=== PATIENT | female | born 1995 | race Caucasian/White ===

== ENCOUNTER 2023-02-24 16:28 | Emergency (ER) | payer OTHER, SELFPAY ==
[2023-02-24 16:41] VITALS: BP 133/78; PULSE 116; O2SAT 98
--- NOTE | 2023-02-24 16:56 | ED.SEIZURE ---
HPI - Seizure General Chief Complaint: Seizure Stated Complaint: SZ LIKE ACTIVITY, POST ICTAL ON EMS ARRIVAL Time Seen by Provider: 02/24/23 16:55 Source: patient Mode of arrival: ambulatory Limitations: no limitations History of Present Illness HPI Narrative: Patient history of GTC since age 5 on zonisamide usually gets seizure once a year today she was at work at a seizure and she fell with tongue bite also complaining of mild headache no alcohol use no lack of sleep not on tramadol Wellbutrin patient also been congested for last 1 week tested for COVID negative recurrent EMS report patient was standing head injury in a tonic-clonic seizure which lasted about 20-25 seconds patient fell and hit the right side of the head to the ground without any significant obvious injuries Related Data Home Medications Medication Instructions Recorded Confirmed drospirenone 3 mg-ethinyl 1 tab PO DAILY 02/24/23 02/24/23 estradiol 0.03 mg tablet (Kely) fluticasone propionate 50 2 spray intranasal DAILY 02/24/23 02/24/23 mcg/actuation nasal spray,suspension loratadine 10 mg tablet 10 mg PO DAILY 02/24/23 02/24/23 zonisamide 100 mg capsule 300 mg PO DAILY 02/24/23 02/24/23 zonisamide 100 mg capsule 400 mg PO BEDTIME 02/24/23 02/24/23 Allergies Allergy/AdvReac Type Severity Reaction Status Date / Time No Known Allergies Allergy Unverified 12/27/19 16:26 [No Known Allergies*] Review of Systems Review of Systems: Yes all other systems are reviewed and are negative PMFSH Social History Social History Advance Directives: No Physical Exam Vital Signs: Vital Signs: Last Vital Signs Temp 98.6 F 02/24/23 17:01 Pulse 86 02/24/23 17:01 Resp 18 02/24/23 17:01 BP 113/73 02/24/23 17:01 Pulse Ox 98 02/24/23 17:01 O2 Del Method Room Air 02/24/23 17:01 BMI result Body Mass Index 36.6 Appearance: Alert. Oriented X3. No acute distress. Sleepy Eyes: PERRLA, No Nystagmus ENT: Pharynx normal. Oral Mucosa moist superficial tongue bite no active bleeding Neck: Normal inspection. Neck supple. CVS: Normal heart rate and rhythm. Pulses normal. Respiratory: No respiratory distress. Equal air entry bilateral, no wheezing/rales/rhonchi Abdomen: Soft and nontender. Bowel sounds are present, no mass palpable, no CVA tenderness Skin: Skin warm and dry. Normal skin color. Normal skin turgor. Extremities: No lower extremity edema. No calf tenderness Neuro: Oriented X 3. No motor deficit. No sensory deficit.No cerebellar signs , cranial nerves II-XII intact Medications Administered Discontinued Medications Generic Name Dose Route Start Last Admin Trade Name Fatou PRN Reason Stop Dose Admin Acetaminophen 650 mg 02/24/23 17:43 02/24/23 17:54 Acetaminophen 325 Mg Tablet PO 02/24/23 17:44 Not Given ONCE ONE Lorazepam 1 mg 02/24/23 17:32 02/24/23 17:47 Lorazepam 2 Mg/Ml Vial IVPUSH 02/24/23 17:33 1 mg ONCE ONE Administration Medical Decision Making Medical Decision Making [facility] Narrative: Patient with epilepsy for longstanding on zonisamide followed by neurologist had a seizure today without any significant injuries patient feeling much better at this time discharge patient home advised to follow up with neurologist Differential Diagnosis Differential Diagnoses: The differential diagnosis associated with the presentation includes As above Lab Data [facility] Lab Attestation statement: I reviewed the patient's lab results. Discharge Plan Discharge Clinical Impression: Epileptic seizure Patient Disposition: Home, Self-Care Instructions: Epilepsy (ED) Additional Instructions: Continue medication as prescribed by your neurologist and follow up with him Report to the ER if more frequent seizure Prescriptions: No Action zonisamide 100 mg capsule 400 mg PO BEDTIME zonisamide 100 mg capsule 300 mg PO DAILY fluticasone propionate 50 mcg/actuation spray,suspension 2 spray intranasal DAILY drospirenone-ethinyl estradiol [Kely] 3-0.03 mg tablet 1 tab PO DAILY loratadine 10 mg tablet 10 mg PO DAILY
[2023-02-24 17:01] VITALS: BP 113/73; PULSE 86; RESP 18; TEMP 37; O2SAT 98; BMI 36.6
[2023-02-24] MEDS: LORazepam 2 MG/ML VIAL 1 MG IVPUSH (17:47)
[2023-02-24 18:27] LABS: Influenza A PCR POSITIVE (Negative); Influenza B PCR NEGATIVE (Negative); Resp Syncy Virus RNA Qual PCR NEGATIVE (Negative); SARS COV2 PCR INHOUSE NEGATIVE (Negative)
== END 2023-02-24 18:36 | disposition home or self-care (01) ==
PROVIDERS: Emergency Provider Internal Medicine; PCP Internal Medicine
DX: G40.909 Epilepsy, unspecified, not intractable, without status epilepticus (principal); Z20.822 Contact with and (suspected) exposure to COVID-19; Z20.828 Contact with and (suspected) exposure to other viral communicable diseases
CPT/HCPCS: 0241U; 96374; 99284; J2060

== ENCOUNTER 2024-12-04 08:30 | Outpatient (AMB) | payer OTHER, SELFPAY ==
--- NOTE | 2024-12-04 08:33 | A.OFFVIS_ITS ---
Intake Visit Reasons: 6 months Allergies No Known Allergies (No Known Allergies*) Allergy (Unverified 12/04/24 08:37) Medication List - Last Reconciled 12/04/24 by Joyce Bowman CNP drospirenone-ethinyl estradiol 3-0.03 mg (Kely) 1 tab PO DAILY fluticasone propionate 50 mcg/actuation 2 sprays intranasal DAILY loratadine 10 mg PO DAILY lorazepam 0.5 mg PO DAILY PRN zonisamide 100 mg orally 3 caps in the morning and 4 caps at bedtime; HPI Comments Details: 28-year-old woman with h/o absence seizures in childhood, and grandmal seizures started at menarche. She was doing okay. No seizures. No medication side effects. She has not needed to use lorazepam. Sleep was okay. Mood was okay. She was working at [employer]. She was possibly considering starting a family in the future. [facility] Medical History (Updated 12/04/24 @ 08:35 by Joyce Bowman CNP) Absence seizure disorder Juvenile myoclonic epilepsy Social History Unable to assess alcohol history related to: Unknown Review of Systems Const Denies chills, Denies daytime sleepiness, Denies difficulty sleeping, Denies fatigue, Denies fever(s), Denies frequent falls, Denies headache(s), Denies increased appetite, Denies poor appetite, Denies snoring, Denies weakness, Denies weight gain and Denies weight loss Eyes Denies loss of vision ENT Denies vertigo, Denies dizziness and Denies headache(s) Card Denies chest pain at rest, Denies chest pain with activity, Denies syncope, Denies leg edema and Denies palpitations Resp Denies snoring GI Denies constipation, Denies heartburn, Denies diarrhea and Denies nausea Denies urinary frequency, Denies urinary incontinence and Denies urinary urgency Musc Denies abnormal gait, Denies numbness and Denies tingling Skin/Breast Denies dry skin and Denies rash Neuro Denies abnormal gait, Denies vertigo, Denies dizziness, Denies syncope, Denies frequent falls, Denies headache(s), Denies lack of coordination, Denies loss of vision, Denies memory loss, Denies numbness, Denies restless legs, Denies seizure-like activity, Denies tingling, Denies paresthesias, Denies tremor(s) and Denies weakness Psych Denies anxiety, Denies depression, Denies auditory hallucinations, Denies memory loss, Denies visual hallucinations and Denies suicidal ideation Endo Denies fatigue and Denies palpitations Physical Exam Const Other: General Appearance:? normal, in no acute distress. Skin:? no rashes, no significant birthmarks. Heart:? S1, S2 normal, no murmurs. Lungs:? clear anteriorly and posteriorly. Extremities:? no edema. Psych:? alert, oriented, cognitive function intact, cooperative with exam. Neuro Other: Mental Status:?Normal attention, orientation, memory and affect.? Cranial Nerves:?Pupils are equal, round and reactive to light. External occular muscles are intact. Visual mixon are full. Face is symmetrical. Facial sensations are normal. Tongue is midline. Palate elevates symmetrically. Shoulder shrugging is normal. Hearing to bedside conversation is normal. Sensory Exam:?....? Coordination:?No ataxia,?no titubation.? Gait Exam: Within normal limits. Extrapyramidal System:?No tremor, rigidity with normal facial expressions.? Pronator Drift:?Not present.? Involuntary Movements:?No tremors seen.? Speech:?Normal.? Results Reviewed Results Reviewed: Routine EEG in 2020: [facility] Routine EEG in office in Dec 2015: [facility] Routine EEG in office in Feb 2015: [place]. Assessment & Plan Assessment & Plan (1) Juvenile myoclonic epilepsy: Code(s): G40.B09 - Juvenile myoclonic epilepsy, not intractable, without status epilepticus Category: Medical Qualifiers: Intractability: not intractable Status epilepticus: without status epilepticus Qualified Code(s): G40.B09 - Juvenile myoclonic epilepsy, not intractable, without status epilepticus Plan: Continue zonisamide 100mg 3 capsules in the morning and 4 capsules at night. Continue lorazepam 0.5mg 1 tablet as needed for seizure #10 for 30 days. (2) Absence seizure disorder: Code(s): G40.A09 - Absence epileptic syndrome, not intractable, without status epilepticus Category: Medical Qualifiers: Intractability: not intractable Status epilepticus: without status epilepticus Qualified Code(s): G40.A09 - Absence epileptic syndrome, not intractable, without status epilepticus Plan . Medications: Changed From zonisamide 100 mg orally 3 caps in the morning and 4 caps at bedtime; To zonisamide 100 mg orally 3 caps in the morning and 4 caps at bedtime; 630 caps 1RF 90 days Coding Level of Care Code Est Pt Level 4 (13012) Diagnoses Nonintractable juvenile myoclonic epilepsy without status epilepticus G40.B09 Intractability: not intractable Status epilepticus: without status epilepticus Nonintractable absence epilepsy without status epilepticus G40.A09 Intractability: not intractable Status epilepticus: without status epilepticus
--- OUTSIDE RECORDS SUMMARY | 2024-12-04 08:42 | XMS_ITS ---
Author Name [facility] Organization Unknown Care Team Organization Name Specialty Phone Email Start Date End Da te [facility] Almaz Burrows Primary Care 08/16/2022 11/28/2023 [facility] Quiana Henriquez Primary Care 02/16/2022
--- OUTSIDE RECORDS SUMMARY | 2024-12-04 08:42 | XMS_ITS | Clinical Summary ---
Author Organization [facility] [address] [place] [address] Address [address] [place] [address] Phone Care Team Providers Care Street Sweeper Name Role Phone Almaz Graves MD Primary Care Prov ider Allergies Active Allergy Reactions Criticality Noted Date Comments Teriflunomide 05/17/2016 Lip swelling Medications zonisamide (ZONEGRAN) 100 mg capsule Take 1 capsule (100 mg total) by mouth 1 (one) time each day. Active silver sulfADIAZINE (SILVADENE, SSD) 1 % cream Sig: Apply small amount to the wound once daily before dressing with bandaid 4 Active drospirenone-ethi nyl estradioL (Kely) 3-0.03 mg per tabletIndications :Encounter for gynecological examination (general) (routine) without abnormal findings Take 1 tablet by mouth 1 (one) time each day. 84 tablet 3 5 Active loratadine (CLARITIN) 10 mg tablet Take 1 tablet (10 mg total) by mouth 1 (one) time each day. 90 tablet 3 5 Active LORazepam (ATIVAN) 0.5 mg tablet Take 1 tablet (0.5 mg total) by mouth every 8 (eight) hours if needed. 5 Active fluticasone propionate (FLONASE) 50 mcg/actuation nasal spray SPRAY 2 SPRAYS INTO EACH NOSTRIL EVERY DAY 48 mL 1 5 Active mupirocin (BACTROBAN) 2 % ointment Apply topically 3 (three) times a day for 10 days. 15 g 5 11/17/19 25 Active Problems Problem Noted Date Diagnosed Date Vaccine counseling 03/09/2021 Overview (02/22/2024): Last Assessment & Plan: I encouraged her to get the COVID vaccine to protect herself, her family and friends from COVID, especially in light of the very contagious and more virulent Delta variant. I explained that the vaccine has been found to be safe and effective and the only way to likely erradicate this virus is to vaccinate everyone. She was encouraged to make an appointment in our office if she changes her mind. She voiced understanding and agreed. I also counseled her re: safety and recommendation for Gardasil. I explained there is no other vaccine to prevent a cancer that we know of. I explained that screening and vaccination are the two ways to prevent cervical cancer. She will consider. Given a pamphlet to take home and discuss with her mother. Tattoo of skin 09/14/2018 LGSIL on Pap smear of cervix 12/20/2017 Overview (02/22/2024): LSIL 2018 NILM 2019 NILM 2019 May return to routine testing Acne 05/03/2014 Epilepsy ([facility] V24, [facility] V28) 02/02/2014 Allergic rhinitis 11/27/2013 Assessment & Plan (07/24/2024 3:27 PM EDT): Refill for her medications was sent today. Flonase, Loratadine. Encounters Date Type Department Care Team Description 11/06/2024 3:30 PM EDT Office Visit Walk-In Clinic - [address] [phone] Yohannes Ahuja PA Impetigo (Primary Dx) from Last 3 Months Immunizations Name Administration Dates Next Due DTaP (Infanrix) 6wks to less than 7yo ,04/01/1997,08/06/1996,05/21,03/19/1996 [id number] (Pentacel) 2mo to less than 5yo 12/31/1996,08/06/1996,05/21/1996,03/19 Hepatitis A Pediatric (Havri x; Vaqta) 12mo to less than 19yo 09/21/2012,09/25/2011 Hepatitis B Pediatric (Enger ix B; Recombivax HB) to less than 20 yo 11/07/2014,10/04/2014,08/06/1996,01/29,1995 IPV Inactivated polio (Ipol) 6wks and older 02/04/2000,08/04/1996,05/21/1996,03/19 Influenza Quadravalent, MDCK , 0.5ml, preservative free (Flucelvax) 6mo and older 12/27/2019 MMR, measles mumps and rubel la Live (Priorix; M-M-R II) 12mo and older 02/04/2000,04/01/1997 Meningococcal Polysaccharide 09/25/2013,10/02/19 08 PPD Test 06/29/2016,10/04/2014 Tdap Tetanus diptheria acell ular pertussis (Boostrix; Adacel) 7yo and older 09/12/2017,10/02/2007 Varicella live (Varivax) 12m o and older 10/01/2004,12/31/1996 Surgical History Surgery Date Site/Laterality Comments OTHER SURGICAL HISTORY PROCEDURE: [place] RPR UMBILICAL HERNIA < 5 YRS REDUCIBLE WISDOM TOOTH EXTRACTION 2018 PROCEDURE: HISTORICAL WISDOM TEETH EXTRACTION Medical History Medical History Date Comments Epilepsy ([facility] V24, [facility] V28) 02/02/2014 DX:Epilepsy ([facility]) Acne 05/03/2014 DX:Acne Allergic rhinitis 11/27/2013 DX:Allergic rh initis LGSIL on Pap smear of cervix 12/20/2017 DX: LGSIL on Pap smear of cervix; COMMENT: LSIL 2017 NILM 2018 NILM 2019 May return to routine testing Family History Medical History Relation Name Comments No Known Problems Father No Known Problems Half-Sister Jeny half pater nal: estranged Diabetes Maternal Grandmother Hypertension Mother Multiple sclerosis Mother's side Cousin paternal Heart attack Paternal Grandfather Parkinson's Disease Paternal Grandmother Stroke Paternal Grandmother scarlett on's Multiple sclerosis Uncle Maternal Breast cancer Neg Hx Colon cancer Neg Hx Ovarian cancer Neg Hx Uterine cancer Neg Hx Relation Name Status Comments Father Alive Half-Sister Jeny Alive Maternal Grandfather Alive Maternal Grandmother Mother Alive Mother's side Cousin Alive Paternal Grandfather Paternal Grandmother Alive Uncle Maternal Alive Social History Tobacco Use Types Packs/Day Years Used Date Smoking Tobacco: Never Smokeless Tobacco: Never Tobacco Cessation:Counseling Given: Not Answered Alcohol Use Standard Drinks/Week Comments Yes 0 (1 standard drink = 0.6 oz pur e alcohol) Housing Instability Answer Date Recorde d Are you worried that in the next 2 months you may not have stable housing? No 04/20/2024 Food Access & Nutrition Answer Date Rec orded Do you have access to a vari ety of food including fruits and vegetables? Yes 04/20/2024 Access to Healthcare Answer Date Record ed Within the last 3 months, ho w many times did you visit the emergency department for your medical care? 0 04/20/2024 Health Literacy Answer Date Recorded How often do you need to hav e someone help you when you read instructions, pamphlets, or other written material from your doctor or pharmacy? Never 04/20/2024 Caregiver: How often do you need to have someone help you when you read instructions, pamphlets, or other written material from your doctor or pharmacy? Not on file 04/20/2024 Financial Risk Answer Date Recorded How hard is it for you to pa y for the very basics like food, housing, medical care, and air conditioning / heating? Not very hard 04/20/2024 Transportation Answer Date Recorded Has the lack of transportati on kept you from meetings, work, or from getting things needed for daily living? No Has the lack of transportati on kept you from medical appointments or from getting medications? No 04/20/2024 Social Isolation Answer Date Recorded How often do you feel lonely or isolated from th ose around you? Never 04/20/2024 Food Risk Answer Date Recorded Within the past 12 months we worried whether our food would run out before we got money to buy more. Never true 04/20/2024 Within the past 12 months th e food we bought just didn't last and we didn't have money to get more. Never true 04/20/2024 Dependent Care Answer Date Recorded Do you need help finding or paying for care for your loved ones. For example, registered nurse maternal child or elderly care for an older adult? No 04/20/2024 Education Answer Date Recorded Do you think completing more education or training, like finishing a GED, going to college, or learning a trade, would be helpful for you? Yes 04/20/2024 Employment and Income Answer Date Recor ded During the last four weeks, have you been actively looking for work? No 04/20/2024 Living Situation Answer Date Recorded What is your living situation? 0 04/20/2024 Comments No Sex and Gender Information Value Date Recorded Sex Assigned at Not on file Legal Sex Female 12:53 PM EST Gender Identity Female 04/13/2023 7:13 PM EST Sexual Orientation Straight 04/13/2023 7: 13 PM EST Obstetrics History Para Term AB IAB SAB Ectopic Multiple Livin g Live Births 0 0 0 0 0 0 0 0 Last Filed Vital Signs Vital Sign Reading Time Taken Comments Blood Pressure 110/86 11/06/2024 3:21 PM EDT Pulse 77 11/06/2024 3:21 PM EDT Temperature 36.4 C (97.5 F) 11/06/2024 3:21 PM EDT Respiratory Rate 18 08/03/2024 10:28 AM EDT Oxygen Saturation 98% 07/01/2024 9:56 AM EDT Inhaled Oxygen Concentration - - Weight 75.1 kg (165 lb 9.6 oz) 08/03/2024 10:28 AM EDT Height 154.9 cm (5' 1 ) 08/03/2024 10:28 AM EDT Body Mass Index 31.29 08/03/2024 10:28 AM EDT Plan of Treatment Upcoming Encounters Date Type Department Care Team (Late st Contact Info) Description 07/29/2025 2:00 PM EDT Office Visit Adult Medicine [address] [phone] Almaz Graves MD [address] [place] [id number] Health Maintenance Due Date Last Done Comments COVID-19 Vaccine ( season) 2023 Influenza Vaccine (#1) 2024 12/27/2019 Social Influencers of Health Screening 04/20/2025 04/20/2024 Cervical Cancer Screening: Pap Smear 04/13/2026 04/13/2023, 04/13/2023, 04/13/2023, Additional history exists DTaP,Tdap,and Td Vaccines (8 - Td or Tdap) 09/13/2027 09/12/2017, 10/02/2007, 02/04/2000, Additional history exists Cholesterol Screening (Lipid Panel) 05/19/2028 05/19/2023 HIB Vaccines Completed 12/31/1996, 12/11, 08/06/1996, Additional history exists IPV Vaccines Completed 02/04/2000, 12/11, 08/06/1996, Additional history exists MMR Vaccines Completed 02/04/2000, 04/01/1997 Varicella Vaccines Completed 10/01/2004, 12/31/1996 Hepatitis A Vaccines Completed 09/21/2012, 09/25/19 12 Meningococcal ACWY Vaccine Aged Out 09/25/2013, No longer eligible based on patient's age to complete this topic Hepatitis B Vaccines Completed 11/07/2014, 10/04/2014, 08/06/1996, Additional history exists Hepatitis C Screening Completed 09/14/2018 Depression Screening Completed 05/10/2024, 07/25/19 24 HIV Screening Discontinued HPV Vaccines Aged Out No longer eligi ble based on patient's age to complete this topic Meningococcal B Vaccine Aged Out No l onger eligible based on patient's age to complete this topic Pneumococcal Vaccine: Pediatrics (0 to 5 Years) and At-Risk Patients (6 to 49 Years) Aged Out No longer eligible based on patient's age to complete this topic RSV Immunization Patients Under 20 months Aged Out No longer eligible based on patient's age to complete this topic Procedures Procedure Name Priority Date/Time Associated Diagnosis Comments DEPRESSION SCREENING Routine 07/25/2023 LIPID PANEL Routine 05/19/2023 PAP SMEAR Routine 04/13/2023 HEPATITIS C SCREENING Routine 09/14/2018 from Last 3 Months or Most Recently Relevant to Health Maintenance Results * Depression Screening (07/25/2023) Depression Screening abstracted Historical Provider HEALTH MAINTENANCE Final Result * Lipid panel (05/19/2023) LDL/HDL Ratio 2 0 - 4 Triglycerides 89 0 - 150 mg/dL Cholesterol 156 0 - 200 mg/dL HDL 80 >=40 mg/dL LDL Cholesterol 59 0 - 100 mg/dL Blood Venous blood specimen / Unknown Historical Provider LAB BLOOD ORDERABLES Carla l Result * Pap smear (04/13/2023) 04/13/2023 Narrative HISTORICAL TESTING LAB RESULTING AGENCY - 04/20/2023 4:40 PM EST [id number] THINPREP PAP, IMAGED: NEGATIVE FOR SQUAMOUS INTRAEPITHELIAL LESION AND MALIGNANCY . JEANNA BARRETO(ASCP) (CASE ELECTRONICALLY SIGNED 04 20 2023) ADEQUACY: SATISFACTORY ENDOCERVICAL/TRANSFORMATION ZONE COMPONENT PRESENT. SOURCE: THINPREP PAP HPV IF ASCUS, CERVICAL, IMAGED CLINICAL INFORMATION: HPV IF DIAGNOSIS OF ASCUS. PAP HX NEGATIVE, [[id number]] Sophie Santana CNM LAB CYTOLOGY ORDERABLES Final Result HISTORICAL TESTING LAB RESULTING AGENCY * Hepatitis C Screening (09/14/2018) Pathologist [facility] Hepatitis C Screening abstracted Historical Provider HEALTH MAINTENANCE Final Result from Last 3 Months or Most Recently Relevant to Health Maintenance Insurance [facility] [employer] Care Teams Street Sweeper Relationship Specialty Start Date End Date Almaz Graves MD [address] [place] [address] [phone] PCP - General Internal Medicine 01/11/22
== END 2024-12-04 08:45 | disposition home or self-care (01) ==
LOC: HO.HSM 08:31
PROVIDERS: PCP Internal Medicine; Referring Provider Internal Medicine; Visit Provider Registered Nurse
DX: G40.B09 Juvenile myoclonic epilepsy, not intractable, without status epilepticus (principal); G40.A09 Absence epileptic syndrome, not intractable, without status epilepticus
CPT/HCPCS: 99214

== ENCOUNTER → 2024-12-04 08:30 | Outpatient (BNVA) | payer OTHER, SELFPAY | PROVIDERS: PCP Internal Medicine; Referring Provider Internal Medicine; Visit Provider Registered Nurse | DX: G40.B09 Juvenile myoclonic epilepsy, not intractable, without status epilepticus (principal); G40.A09 Absence epileptic syndrome, not intractable, without status epilepticus; Z79.899 Other long term (current) drug therapy | CPT/HCPCS: 99212 ==